=== PATIENT | female | born 1980 | race American Indian/Alaskan Native ===

== ENCOUNTER 2018-05-28 19:13 | Emergency (ER) | payer MEDICAID ==
[2018-05-28 20:09] VITALS: BP 103/76
--- NOTE | 2018-05-28 20:15 | Emergency Department Report ---
Blank Doc - Documentation Documentation: 38 y/o AAF presents c/o of N/D for 2-3 days with lower abdominal pain that rad iates to the pelvic region. No fever or chills. No trauma. Denies dysuria. Started menses today. Plan Urine and labs. if positive findings may CT Abdomen
[2018-05-28 20:35] LABS: Basophils # (Auto) 0.1 K/mm3 (0.0-0.1); Basophils % (Auto) 1.4 % (0.0-1.8); Eosinophils # (Auto) 0.1 K/mm3 (0.0-0.4); Eosinophils % (Auto) 1.5 % (0.0-4.3); Hematocrit 32.4 % (30.3-42.9); Hemoglobin 10.2 gm/dl (10.1-14.3); Lymphocytes # (Auto) 2.7 K/mm3 (1.2-5.4); Lymphocytes % (Auto) 29.3 % (13.4-35.0); Mean Corpuscular HGB Conc 32 % (30-34); Mean Corpuscular Volume 74 fl (79-97); Monocytes # (Auto) 0.7 K/mm3 (0.0-0.8); Monocytes % (Auto) 7.4 % (0.0-7.3); Platelet Count 306 K/mm3 (140-440); Red Blood Count 4.41 M/mm3 (3.65-5.03); Red Cell Distribution Width 19.9 % (13.2-15.2)
[2018-05-28 21:16] LABS: Alanine Aminotransferase 9 units/L (7-56); Albumin 4.5 g/dL (3.9-5); BUN/Creatinine Ratio 15; Blood Urea Nitrogen 9 mg/dL (7-17); Calcium 9.5 mg/dL (8.4-10.2); Hemolysis Index 0
[2018-05-28 23:07] LABS: Bacteria,Urine 1+ /HPF (Negative); Bilirubin,Urine NEG (Negative); Blood,Urine LG (Negative); Calcium Oxalate Crystals,Urine FEW; Color,Urine Amber (Yellow); Mucus,Urine 3+ /HPF
[2018-05-29] MEDS ORDERED: LEVAQUIN PO STA (00:51)
[2018-05-29] MEDS ORDERED: K-DUR PO STA (00:51)
[2018-05-29] MEDS ORDERED: ZOFRAN ODT PO STA (00:51)
--- NOTE | 2018-05-29 02:01 | Emergency Department Report ---
ED Female HPI - General Chief complaint: Abdominal Pain Stated complaint: ABD PAIN Time Seen by Provider: 05/28/18 20:08 Source: EMS Mode of arrival: Ambulatory Limitations: No Limitations - History of Present Illness Initial comments: 38-year-old -[place] female, [facility] complaining of a one to 2 day history of nausea with some occasional vomiting and flank pain with suprapubic discomfort associated with some dysuria. She denies any foreign travel. Or constipation. No hemoptysis, hematemesis, no hematochezia. Reports no chest pain or palpitations. She denies any trauma. No possibility of being . She reports having had a tubal ligation. MD Complaint: dysuria -: Gradual Location: suprapubic Radiation: non-radiating Severity: mild Quality: burning Consistency: constant Worsens with: urination Are you Now?: No Associated Symptoms: nausea/vomiting, dysuria. denies: vaginal discharge, vaginal bleeding, abdominal pain, loss of appetite, rash, seizure, shortness of breath, syncope - Related Data Sexually active: No Previous Rx's Medication Instructions Recorded Last Taken Type Ciprofloxacin HCl [Cipro] 500 mg PO BID #20 tablet 05/29/18 Unknown Rx Phenazopyridine [Pyridium] 200 mg PO BID PRN #10 tab 05/29/18 Unknown Rx Sulfamethoxazole/Trimethoprim 1 each PO BID #20 tablet 05/29/18 Unknown Rx [Bactrim DS TAB] Allergies Allergy/AdvReac Type Severity Reaction Status Date / Time codeine Allergy Anaphylaxis Verified 05/29/18 01:04 ED Review of Systems ROS: Stated complaint: ABD PAIN Other details as noted in HPI Constitutional: denies: chills, fever Eyes: denies: eye pain, eye discharge, vision change ENT: denies: ear pain, throat pain Respiratory: denies: cough, shortness of breath, wheezing Cardiovascular: denies: chest pain, palpitations Endocrine: no symptoms reported Gastrointestinal: denies: abdominal pain, nausea, diarrhea Genitourinary: denies: urgency, dysuria, discharge Musculoskeletal: denies: back pain, joint swelling, arthralgia Skin: denies: rash, lesions Neurological: denies: headache, weakness, paresthesias Psychiatric: denies: anxiety, depression Hematological/Lymphatic: denies: easy bleeding, easy bruising ED Past Medical Hx - Past Medical History Previous Medical History?: Yes Additional medical history: Anemia - Surgical History Past Surgical History?: Yes Additional Surgical History: tubaligation, left breast - Social History Smoking Status: Current Every Day Smoker Substance Use Type: Alcohol, Marijuana - Medications Home Medications: Home Medications Medication Instructions Recorded Confirmed Last Taken Type Ciprofloxacin HCl [Cipro] 500 mg PO BID #20 tablet 05/29/18 Unknown Rx Phenazopyridine [Pyridium] 200 mg PO BID PRN #10 tab 05/29/18 Unknown Rx Sulfamethoxazole/Trimethoprim 1 each PO BID #20 tablet 05/29/18 Unknown Rx [Bactrim DS TAB] ED Physical Exam - General Limitations: No Limitations General appearance: alert, in no apparent distress - Head Head exam: Present: atraumatic, normocephalic - Eye Eye exam: Present: normal appearance, PERRL, EOMI - ENT ENT exam: Present: mucous membranes moist - Neck Neck exam: Present: normal inspection - Respiratory Respiratory exam: Present: normal lung sounds bilaterally. Absent: respiratory distress - Cardiovascular Cardiovascular Exam: Present: regular rate, normal rhythm. Absent: systolic murmur, diastolic murmur, rubs, gallop - GI/Abdominal GI/Abdominal exam: Present: soft, tenderness, normal bowel sounds. Absent: organomegaly, bruit - Extremities Exam Extremities exam: Present: normal inspection - Back Exam Back exam: Present: normal inspection - Neurological Exam Neurological exam: Present: alert, oriented X3 - Psychiatric Psychiatric exam: Present: normal affect, normal mood - Skin Skin exam: Present: warm, dry, intact, normal color. Absent: rash ED Course Vital Signs 05/28/18 20:05 Temperature 98.3 F Pulse Rate 89 Respiratory 16 Rate Blood Pressure 103/76 O2 Sat by Pulse 100 Oximetry ED Medical Decision Making - Lab Data Result diagrams: 05/28/18 20:22 05/28/18 20:22 - Medical Decision Making 38-year-old [place] female, dysuria, and laboratory data to suggest possible urinary tract infection. Plan to scope her with anabiotic syndrome. Have her follow up with primary care provider for reevaluation in to evaluate the resolution of the symptoms. This patient on Cipro and Pyridium - Differential Diagnosis includes but not limited to UTI, STD, gastritis, malignancy Critical care attestation.: If time is entered above; I have spent that time in minutes in the direct care of this critically ill patient, excluding procedure time. ED Disposition Clinical Impression: UTI (urinary tract infection) Disposition: DC- TO HOME OR SELFCARE Is pt being admited?: No Does the pt Need Aspirin: No Condition: Stable Instructions: Phenazopyridine (By mouth), Urinary Tract Infection in Women (ED) , Abdominal Pain (ED) Prescriptions: Ciprofloxacin HCl [Cipro] 500 mg PO BID #20 tablet Phenazopyridine [Pyridium] 200 mg PO BID PRN #10 tab PRN Reason: dysuria Sulfamethoxazole/Trimethoprim [Bactrim DS TAB] 1 each PO BID #20 tablet Referrals: MATILDA GARCIA MD [Primary Care Provider] - 3-5 Days
== END 2018-05-29 02:14 | disposition home or self-care (01) ==
LOC: ED 19:13
DX: N39.0 Urinary tract infection, site not specified (principal); R11.2 Nausea with vomiting, unspecified; Z88.5 Allergy status to narcotic agent; Z98.51 Tubal ligation status; Z86.2 Personal history of diseases of the blood and blood-forming organs and certain disorders involving the immune mechanism
CPT/HCPCS: 36415; 80053; 81001; 83690; 85025; 99283; Q0162

== ENCOUNTER 2019-04-26 15:20 | Emergency (ER) | payer SELFPAY ==
[2019-04-26 15:50] VITALS: BP 156/79
--- NOTE | 2019-04-26 18:05 | Emergency Department Report ---
Blank Doc - Documentation Documentation: C/O OF CONGESTION AND CORYZA OR THE LAST MONTH OFF AND ON . 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 NO SOB OR CHEST PAIN. NO FEVER. NO ABDOMINAL PAIN. PLAN MSE
== END 2019-04-26 18:00 | disposition left against medical advice (07) ==
LOC: ED 15:20
DX: J11.1 Influenza due to unidentified influenza virus with other respiratory manifestations (principal); Z53.21 Procedure and treatment not carried out due to patient leaving prior to being seen by health care provider